=== PATIENT | female | born 1980 | race Two or more races ===

== ENCOUNTER 2021-09-18 06:01 | Inpatient (IN) | payer OTHER ==
[~2021-09-18] VITALS: Ht 157.5 cm; Wt 68.9 kg
[2021-09-18] MEDS ORDERED: OBSTETRX ONE 38-1-22 (07:44)
[2021-09-18] MEDS ORDERED: FOLIC ACID1 MG (08:15)
[2021-09-21] MEDS ORDERED: COLACE100 MG PO ×2 (10:50→11:00)
[2021-09-21] MEDS ORDERED: SIMETHICONE125 M1 PO ×2 (10:52→11:01)
[2021-09-21] MEDS ORDERED: IBU800 MG PO (10:52)
== END 2021-09-21 13:00 | disposition home or self-care (01) | DRG 788 ==
LOC: LDR 06:01 → OB/GYN 06:01
PROVIDERS: ADMIT Specialist; ATTEND Specialist
PROC: 3E033VJ Introduction of Other Hormone into Peripheral Vein, Percutaneous Approach (ICD-10-PCS; 2021-09-18)
PROC: 10907ZC Drainage of Amniotic Fluid, Therapeutic from Products of Conception, Via Natural or Artificial Opening (ICD-10-PCS; 2021-09-18)
PROC: 4A1HXFZ Monitoring of Products of Conception, Cardiac Rhythm, External Approach (ICD-10-PCS; 2021-09-18)
PROC: 10D00Z1 Extraction of Products of Conception, Low, Open Approach (ICD-10-PCS; principal; 2021-09-18 18:00)
DX: O62.1 Secondary uterine inertia (principal); O48.0 Post-term pregnancy; Z37.0 Single live birth; Z3A.40 40 weeks gestation of pregnancy

== ENCOUNTER 2025-01-20 16:15 | Emergency (ER) | payer OTHER ==
[~2025-01-20] VITALS: Ht 157.5 cm; Wt 49.4 kg
[~2025-01-20 16:15] MED LIST: COLACE100 MG PO; FOLIC ACID1 MG; IBU800 MG PO; OBSTETRX ONE 38-1-22; SIMETHICONE125 M1 PO
[2025-01-20 19:51] LABS: HEMATOCRIT 36.9 % (36.0-45.00); HEMOGLOBIN 12.5 g/dL (12.0-15.00); MEAN CELL VOLUME 90.6 fL (80.00-100.00); MEAN CORPUSCULAR HEMOGLOBIN 30.7 pg (27.00-32.0); MEAN CORPUSCULAR HGB CONC 33.9 g/dl (32.0-36.0); PLATELET COUNT 208 K/uL (150-450); RED BLOOD COUNT 4.07 M/uL (4.00-6.00); RED CELL DISTRIBUTION WIDTH 13.4 % (11.5-14.5)
[2025-01-20 19:52] LABS: PH,URINE 6.5 (5.0-8.0); URINE APPEARANCE Clear; URINE BILIRRUBIN Negative (NEGATIVE); URINE BLOOD Large; URINE COLOR Yellow; URINE GLUCOSE Negative (NEGATIVE); URINE KETONE Negative (NEGATIVE); URINE LEUKOCYTE Negative; URINE NITRATE Negative; URINE PROTEIN Negative (NEGATIVE); URINE UROBILINOGEN 0.2 E.U./dl
[2025-01-20 19:56] LABS: URINE BACTERIA 124.8 uL (0.0-1933); URINE EPITHELIAL CELLS 12.3 uL (0.0-38.8); URINE RBC 901.5 uL (0.0-20.8); URINE WBC 2.5 uL (0.0-23.2)
== END 2025-01-20 20:58 | disposition home or self-care (01) ==
LOC: ER 16:17
PROVIDERS: General Practice
DX: O46.8X1 Other antepartum hemorrhage, first trimester (principal); Z3A.01 Less than 8 weeks gestation of pregnancy; Z88.0 Allergy status to penicillin; Z88.6 Allergy status to analgesic agent; Z20.822 Contact with and (suspected) exposure to COVID-19

== ENCOUNTER 2025-02-08 12:30 | Day surgery (SDC) | payer OTHER ==
[~2025-02-08] VITALS: Ht 157.5 cm; Wt 50.3 kg
--- NOTE | 2025-02-08 10:32 | NUR ---
SE LLAMA PACIENTE NO RESPONDE
--- NOTE | 2025-02-08 11:00 | NUR ---
SE RECIBE PACIENTE ALERTA Y ORIENTADA X3 LA CUAL REFIERE VENIR A CAUSA DE SANGRADO VAGINAL, LA MISMA REFIERE ESTAR EMBARAZADA DE 9 SEMANAS Y QUE EN EL KORY DE JEAN SANGRO BASTANTE Y OBSERVO WYATT MASA DE COLOR ZAYNAB OSCURA. MCGREGOR GINECOLOGA ES DRA. TERRIE ORTEGA
--- NOTE | 2025-02-08 12:26 | NUR ---
SE EDUCA PACIENTE SOBRE INDICACIONES MEDICACIONES. SE REALIZA VENOPUCION PARA COLECTAR MUESTRAS DE LAB Y SE OBTIENE ACCESO VENOSO PARA ADMINISTRA MEDS
[~2025-02-08 12:30] MED LIST changes: +0.9 % SODIUM CHLORIDE 1,000 ML IV STA
[2025-02-08 12:42] LABS: HEMATOCRIT 34.3 % (36.0-45.00); HEMOGLOBIN 11.7 g/dL (12.0-15.00); MEAN CELL VOLUME 90.2 fL (80.00-100.00); MEAN CORPUSCULAR HEMOGLOBIN 30.8 pg (27.00-32.0); MEAN CORPUSCULAR HGB CONC 34.2 g/dl (32.0-36.0); PLATELET COUNT 309 K/uL (150-450); RED CELL DISTRIBUTION WIDTH 13.8 % (11.5-14.5)
[2025-02-08 13:05] LABS: URINE APPEARANCE Cloudy; URINE BILIRRUBIN Negative (NEGATIVE); URINE BLOOD Large; URINE COLOR Orange; URINE GLUCOSE Negative (NEGATIVE); URINE KETONE Negative (NEGATIVE); URINE LEUKOCYTE Moderate; URINE NITRATE Negative; URINE PROTEIN 30 (NEGATIVE); URINE UROBILINOGEN 0.2 E.U./dl
[2025-02-08 13:10] LABS: URINE BACTERIA 532.4 uL (0.0-1933); URINE EPITHELIAL CELLS 11.5 uL (0.0-38.8); URINE WBC 258.3 uL (0.0-23.2)
[2025-02-08 13:11] LABS: URINE CAST 0.14 uL (0.0-1.40)
[2025-02-08 18:08] LABS: INR 1.05; PARTIAL THROMBOPLASTIN TIME 31.1 SECONDS (22.0-34.0); PROTHROMBIN TIME 11.4 SECONDS (9.0-11.5)
[2025-02-09 03:08] VITALS: BP 94/53; O2SAT 99
== END 2025-02-09 01:45 | disposition home or self-care (01) ==
LOC: CIR.AMB 12:30 → ER 12:30 → O/R 18:22 → ER 18:22 → CIR.AMB 02-09 01:45 → O/R 02-15 10:32
PROVIDERS: General Practice; ATTEND Emergency Medicine
DX: O03.4 Incomplete spontaneous abortion without complication (principal); Z88.0 Allergy status to penicillin; Z88.6 Allergy status to analgesic agent